=== PATIENT | female | born 2000 | race Two or more races ===

== ENCOUNTER 2023-08-13 14:53 | Emergency (ER) | payer OTHER ==
[~2023-08-13] VITALS: Ht 157.5 cm; Wt 61.2 kg
[2023-08-13] MEDS ORDERED: PRENATAL + DHA1 EAC1 (15:13)
[2023-08-13 18:19] LABS: HEMATOCRIT 37.8 % (36.0-45.00); HEMOGLOBIN 12.4 g/dL (12.0-15.00); MEAN CELL VOLUME 88.4 fL (80.00-100.00); MEAN CORPUSCULAR HEMOGLOBIN 29.1 pg (27.00-32.0); MEAN CORPUSCULAR HGB CONC 32.9 g/dl (32.0-36.0); PLATELET COUNT 161 K/uL (150-450); RED BLOOD COUNT 4.28 M/uL (4.00-6.00)
[2023-08-13 18:41] LABS: CALCIUM 9.2 mg/dL (8.5-10.1); CREATININE SERUM 0.53 mg/dL (0.55-1.02); GFR 142.95; POTASSIUM 4.68 mEq/L (3.5-5.1)
[2023-08-13 19:19] LABS: PH,URINE 5.5 (5.0-8.0); URINE APPEARANCE Clear; URINE BILIRRUBIN Negative (NEGATIVE); URINE BLOOD Negative; URINE COLOR Yellow; URINE GLUCOSE Negative (NEGATIVE); URINE LEUKOCYTE Negative; URINE NITRATE Negative; URINE PROTEIN Negative (NEGATIVE)
[2023-08-13 19:23] LABS: URINE BACTERIA 42.8 uL (0.0-1933); URINE EPITHELIAL CELLS 19.6 uL (0.0-38.8); URINE RBC 44.6 uL (0.0-20.8); URINE WBC 9.5 uL (0.0-23.2)
== END 2023-08-13 20:48 | disposition home or self-care (01) ==
LOC: ER 14:53
PROVIDERS: Emergency Medicine
DX: O20.8 Other hemorrhage in early pregnancy (principal); Z3A.08 8 weeks gestation of pregnancy; Z88.6 Allergy status to analgesic agent; R11.10 Vomiting, unspecified

== ENCOUNTER → 2023-09-14 | Emergency (ER) | payer OTHER ==
[~2023-09-14] VITALS: Ht 157.5 cm; Wt 63.5 kg
[~2023-09-14] MED LIST: PRENATAL + DHA1 EAC1
== END | disposition home or self-care (01) ==
LOC: ER 11:21
DX: O98.511 Other viral diseases complicating pregnancy, first trimester (principal); Z3A.11 11 weeks gestation of pregnancy; J11.1 Influenza due to unidentified influenza virus with other respiratory manifestations; Z88.6 Allergy status to analgesic agent

== ENCOUNTER 2023-09-19 08:35 | Outpatient (CLI) | payer OTHER | END 2023-09-19 08:48 | disposition home or self-care (01) | LOC: PRENATAL 08:35 | PROVIDERS: ATTEND Obstetrics & Gynecology Maternal & Fetal Medicine | DX: O36.80X0 Pregnancy with inconclusive fetal viability, not applicable or unspecified (principal); Z36.82 Encounter for antenatal screening for nuchal translucency; Z36.9 Encounter for antenatal screening, unspecified; Z3A.12 12 weeks gestation of pregnancy ==

== ENCOUNTER 2023-11-19 08:03 | Outpatient (CLI) | payer OTHER | END 2023-11-19 08:04 | disposition home or self-care (01) | LOC: PRENATAL 08:03 | PROVIDERS: ATTEND Obstetrics & Gynecology Maternal & Fetal Medicine | DX: O35.3XX0 Maternal care for (suspected) damage to fetus from viral disease in mother, not applicable or unspecified (principal); O44.00 Complete placenta previa NOS or without hemorrhage, unspecified trimester; Z3A.20 20 weeks gestation of pregnancy ==

== ENCOUNTER 2024-01-16 12:30 | Outpatient (CLI) | payer OTHER ==
[2024-01-16 13:28] LABS: HEMATOCRIT 34.2 % (36.0-45.00); HEMOGLOBIN 11.7 g/dL (12.0-15.00); MEAN CELL VOLUME 91.7 fL (80.00-100.00); MEAN CORPUSCULAR HEMOGLOBIN 31.2 pg (27.00-32.0); PLATELET COUNT 153 K/uL (150-450); RED BLOOD COUNT 3.73 M/uL (4.00-6.00); RED CELL DISTRIBUTION WIDTH 13.8 % (11.5-14.5)
[2024-01-16 13:50] LABS: INR 0.95; PARTIAL THROMBOPLASTIN TIME 27.2 SECONDS (22.0-34.0)
== END 2024-01-16 12:31 | disposition home or self-care (01) ==
LOC: LAB 12:30
PROVIDERS: ATTEND Internal Medicine Hematology & Oncology
DX: D64.9 Anemia, unspecified (principal); D68.01 Von Willebrand disease, type 1; D65 Disseminated intravascular coagulation [defibrination syndrome]

== ENCOUNTER → 2024-02-06 14:01 | Outpatient (CLI) | payer OTHER | END | disposition home or self-care (01) | LOC: PRENATAL 14:01 | PROVIDERS: ATTEND Obstetrics & Gynecology Maternal & Fetal Medicine | DX: O26.849 Uterine size-date discrepancy, unspecified trimester (principal); O36.8199 Decreased fetal movements, unspecified trimester, other fetus; Z3A.32 32 weeks gestation of pregnancy ==